=== PATIENT | male | born 1985 | race Caucasian/White ===

== ENCOUNTER 2018-07-28 08:38 | Outpatient (CLI) | payer OTHER ==
--- NOTE | 2018-07-28 09:17 | RAD ---
LEFT KNEE THREE VIEWS: HISTORY: Left knee pain. Arthritis. FINDINGS: No fracture, dislocation, or bony destruction is seen. No osteophytosis is identified. POS: C
== END 2018-07-28 08:39 | disposition home or self-care (01) ==
LOC: BICRAD 08:38
PROVIDERS: ATTEND Orthopaedic Surgery
DX: M17.11 Unilateral primary osteoarthritis, right knee (principal)